=== PATIENT | female | born 1960 | race Caucasian/White ===

== ENCOUNTER 2018-08-26 08:01 | Day surgery (SDC) | payer BC ==
[~2018-08-26 08:01] MED LIST: Lactated Ringers 1,000 ML IV SCH; Lidocaine 2% 5 ML SDV ONE; Midazolam 1 MG/ML 2 ML SDV ONE; Propofol 200 MG/20 ML SDV ONE; Sodium Chloride 0.9% 10 ML SDV IV PRN; Sodium Chloride 0.9% 10 ML Syringe FLUSH PRN; Sodium Chloride 0.9% 2.5 ML Syringe FLUSH PRN; fentaNYL 100 MCG/2 ML SDV ONE
--- NOTE | 2018-08-26 09:02 | PCM.PREANE ---
Preanesthetic Assessment - Anesthesia/Transfusion/Family Hx Anesthesia History: Prior Anesthesia Without Reaction Other Type of Anesthesia Reaction Comment: states has hard time waking up from general anesthesia Family History of Anesthesia Reaction: No Transfusion History: No Prior Transfusion(s) - Review of Systems General: No Symptoms Pulmonary: No Symptoms Cardiovascular: No Symptoms Gastrointestinal: No Symptoms Neurological: No Symptoms Other: Reports: None - Physical Assessment NPO Status Date: 08/25/18 Height: 5 ft 2 in Weight: 67.585 kg ASA Class: 2 Mental Status: Alert & Oriented x3 Airway Class: Mallampati = 2 Dentition: Reports: Normal Dentition ROM/Head Extension: Full Lungs: Clear to Auscultation, Normal Respiratory Effort Cardiovascular: Regular Rate, Regular Rhythm - Allergies Allergies/Adverse Reactions: Allergies Allergy/AdvReac Type Severity Reaction Status Date / Time codeine Allergy Nausea and Verified 08/21/18 07:45 Vomiting Opioids - Morphine Analogues Allergy Nausea and Verified 08/21/18 07:45 Vomiting - Anesthesia Plan Pre-Op Medication Ordered: None - Acknowledgements Anesthesia Type Planned: General Anesthesia, MAC Pt an Appropriate Candidate for the Planned Anesthesia: Yes Alternatives and Risks of Anesthesia Discussed w Pt/Guardian: Yes Pt/Guardian Understands and Agrees with Anesthesia Plan: Yes PreAnesthesia Questionnaire HEENT History: Reports: Other (See Below) Other HEENT History: wears glasses Cardiovascular History: Reports: Hypertension Respiratory History: Reports: None Gastrointestinal History: Reports: Other (See Below) Other Gastrointestinal History: epigastric discomfort Genitourinary History: Reports: Renal Calculus 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: Musculoskeletal History: Reports: Fracture Other Musculoskeletal History: hx fx ribs Neurological History: Reports: Concussion Psychiatric History: Reports: None Endocrine/Metabolic History: Reports: None Hematologic History: Reports: None Immunologic History: Reports: None Oncologic (Cancer) History: Reports: None Dermatologic History: Reports: None - Past Surgical History Head Surgeries/Procedures: Reports: None Female Surgical History: Reports: Section, Lithotripsy/ESWL Endocrine Surgical History: Reports: None Neurological Surgical History: Reports: None Musculoskeletal Surgical History: Reports: None Oncologic Surgical History: Reports: None Dermatological Surgical History: Reports: None - SUBSTANCE USE Smoking Status *Q: Never Smoker Recreational Drug Use History: No - HOME MEDS Home Medications: Home Meds Omeprazole 20 mg PO DAILY 08/21/18 [History] hydroCHLOROthiazide [Hydrochlorothiazide] 25 mg PO DAILY 08/21/18 [History] - CURRENT (IN HOUSE) MEDS Current Meds: Current Medications Lactated Ringer's (Ringers, Lactated) 1,000 mls @ 125 mls/hr IV ASDIRECTED RODOLFO Sodium Chloride (Saline Flush) 10 ml FLUSH ASDIRECTED PRN PRN Reason: Keep Vein Open Sodium Chloride (Saline Flush) 2.5 ml FLUSH ASDIRECTED PRN PRN Reason: Keep Vein Open Sodium Chloride (Normal Saline) 10 ml IV ASDIRECTED PRN PRN Reason: IV Use Discontinued Medications Fentanyl (Sublimaze) Confirm Administered Dose 100 mcg .ROUTE .STK-MED ONE Stop: 08/26/18 07:03 Lidocaine (Xylocaine-Mpf 2%) Confirm Administered Dose 5 ml .ROUTE .STK-MED ONE Stop: 08/26/18 07:03 Midazolam HCl (Versed 1 Mg/Ml) Confirm Administered Dose 2 mg .ROUTE .STK-MED ONE Stop: 08/26/18 07:03 Propofol (Diprivan 20 Ml) Confirm Administered Dose 400 mg .ROUTE .STK-MED ONE Stop: 08/26/18 07:03
--- NOTE | 2018-08-26 09:46 | PCM.OPNOTE ---
- General Post-Op/Procedure Note Date of Surgery/Procedure: 08/26/18 Operative Procedure(s): Diagnostic EGD with biopsy Findings: Small hiatal hernia with mild narrowing of the distal esophagus and mild presbyesophagus Pre Op Diagnosis: Hiatal hernia Post-Op Diagnosis: same Anesthesia Technique: MAC Primary Surgeon: Ladi Ritchie Condition: Good
--- NOTE | 2018-08-26 09:56 | PCM.POSTAN ---
POST ANESTHESIA ASSESSMENT - MENTAL STATUS Mental Status: Alert, Oriented - RESPIRATORY Respiratory Status: Respiratory Rate WNL, Airway Patent, O2 Saturation Stable - CARDIOVASCULAR CV Status: Pulse Rate WNL, Blood Pressure Stable - GASTROINTESTINAL GI Status: No Symptoms - POST OP HYDRATION Hydration Status: Adequate & Stable
--- NOTE | 2018-08-26 09:56 | PCM48HPAN ---
Post Anesthesia Note - EVALUATION WITHIN 48HRS OF ANESTHETIC Vital Signs in Normal Range: Yes Patient Participated in Evaluation: Yes Respiratory Function Stable: Yes Airway Patent: Yes Cardiovascular Function Stable: Yes Hydration Status Stable: Yes Pain Control Satisfactory: Yes Nausea and Vomiting Control Satisfactory: Yes Mental Status Recovered: Yes Resp Rate: 18
[2018-08-26 10:14] VITALS: BP 157/91
--- NOTE | 2018-08-26 17:57 | OR ---
SURGEON: XAVIER WILLSON MD DATE OF PROCEDURE: 08/26/2018 PREOPERATIVE DIAGNOSIS: Hiatal hernia. POSTOPERATIVE DIAGNOSES: 1. Hiatal hernia. 2. Gastric polyp. 3. Mild presbyesophagus. PROCEDURE PERFORMED: Diagnostic esophagogastroduodenoscopy with biopsy. ANESTHESIA: MAC. INSTRUMENT USED: Olympus endoscope. EXTENT OF EXAM: Second portion of duodenum. PREPARATION: Good. LIMITATIONS: None. INDICATION FOR EXAMINATION: The patient is a 58-year-old female, who presented to my clinic with dysphagia. This is associated with some chest pain. A preoperative esophagram showed a tiny hiatal hernia with slight narrowing above the GE junction as well as some mild presbyesophagus. She has been on omeprazole since I saw her in clinic. We discussed the need for diagnostic EGD. I explained the procedure, expected perioperative course, and risks including bleeding, infection, or damage to surrounding structures including perforation. The patient verbalized understanding and wishes to proceed. PROCEDURE IN DETAIL: The patient was brought into the endoscopy suite and placed in a beach chair position. A time-out was completed verifying the patient's name, age, date of , allergies, and procedure to be performed. Monitored anesthesia care was induced and a bite block was placed in the patient's mouth. Continuous oxygen was provided via nasal cannula throughout the procedure. After adequate sedation was achieved, a well-lubricated endoscope was placed in the patient's mouth and advanced under direct visualization to the second portion of the duodenum. This appeared normal and a photograph was taken. The scope was then fully withdrawn while examining the color, texture, anatomy, and integrity of the mucosa of the upper GI tract. The duodenum was free of pathology. The scope was then brought into the stomach and a photograph was taken of the pylorus as well as the GE junction. The patient was noted to have a small hiatal hernia. The gastric mucosa appeared free of gross inflammation or ulceration. There was a small polyp in the body of the stomach along the lesser curvature. This was removed and sent to pathology as a gastric polyp. Biopsies were taken of the gastric antrum, body, and fundus and sent for histologic review and H. pylori testing. The scope was then brought into the distal esophagus. First, I passed through the hiatal hernia sac, which again appeared quite small. Photographs were taken of this. I then took a photo of the GE junction in the distal esophagus. There appeared to be slight narrowing there, but no evidence of any gross inflammation, ulceration, or scarring. A biopsy was taken 1 cm above the GE junction and sent to pathology, labeled as esophageal biopsy. The remainder of the esophageal mucosa appeared free of gross pathology; however, I did note some mild presbyesophagus. The scope was removed and the procedure terminated. The patient was transferred to the PACU in stable condition. ENDOSCOPIC DIAGNOSES: 1. Hiatal hernia. 2. Gastric polyp. 3. Mild presbyesophagus. RECOMMENDATIONS: Continue to take omeprazole and I will see the patient in clinic in 2 weeks to discuss any further workup. PAULINA ARORA /[id number]
[2018-08-27] MEDS ORDERED: Omeprazole 20 MG Cap.CR PO SCH (07:30)
== END 2018-08-26 10:45 | disposition home or self-care (01) ==
LOC: MW.SDS 08:01
PROVIDERS: ATTEND Surgery
DX: K44.9 Diaphragmatic hernia without obstruction or gangrene (principal); K20.9 Esophagitis, unspecified; K31.7 Polyp of stomach and duodenum; K21.9 Gastro-esophageal reflux disease without esophagitis; K22.8 Other specified diseases of esophagus; I10 Essential (primary) hypertension; E78.00 Pure hypercholesterolemia, unspecified; Z88.5 Allergy status to narcotic agent; Z79.899 Other long term (current) drug therapy
CPT/HCPCS: 43239; 88305; 88312; J2001; J2250; J2704; J3010; J7120

== ENCOUNTER 2018-10-13 07:52 | Day surgery (SDC) | payer BC ==
[~2018-10-13 07:52] MED LIST changes: +Bupivacaine 0.5% 10 ML SDV ONE; -Lidocaine 2% 5 ML SDV ONE; -Midazolam 1 MG/ML 2 ML SDV ONE; -Propofol 200 MG/20 ML SDV ONE; +ceFAZolin 2 GM in Premix Bag 1 BAG IV ONE; -fentaNYL 100 MCG/2 ML SDV ONE
--- NOTE | 2018-10-13 08:45 | PCM.PREANE ---
Preanesthetic Assessment - Anesthesia/Transfusion/Family Hx Anesthesia History: Prior Anesthesia Without Reaction Other Type of Anesthesia Reaction Comment: states has hard time waking up from general anesthesia Family History of Anesthesia Reaction: No Transfusion History: No Prior Transfusion(s) - Review of Systems General: No Symptoms Pulmonary: No Symptoms Cardiovascular: No Symptoms Gastrointestinal: No Symptoms Neurological: No Symptoms Other: Reports: None - Physical Assessment O2 Sat by Pulse Oximetry: 94 Respiratory Rate: 16 Vital Signs: Last Vital Signs Temp 99.0 F 10/13/18 08:26 Pulse 71 10/13/18 08:26 Resp 16 10/13/18 08:26 BP 145/91 H 10/13/18 08:26 Pulse Ox 94 L 10/13/18 08:26 Height: 5 ft 2 in Weight: 70.76 kg ASA Class: 2 ROM/Head Extension: Full Lungs: Clear to Auscultation, Normal Respiratory Effort Cardiovascular: Regular Rate, Regular Rhythm - Allergies Allergies/Adverse Reactions: Allergies Allergy/AdvReac Type Severity Reaction Status Date / Time codeine Allergy Nausea and Verified 10/09/18 09:33 Vomiting Opioids - Morphine Analogues Allergy Nausea and Verified 10/09/18 09:33 Vomiting - Blood Blood Available: No - Anesthesia Plan Pre-Op Medication Ordered: None - Acknowledgements Anesthesia Type Planned: General Anesthesia Pt an Appropriate Candidate for the Planned Anesthesia: Yes Alternatives and Risks of Anesthesia Discussed w Pt/Guardian: Yes Pt/Guardian Understands and Agrees with Anesthesia Plan: Yes Additional Comments: PMH: gerd, htn, biliary dyskenesia PLAN: GET, Go easy on intraoperative narcotic, use betablocker for sympathetic controll during dissection of gallbladder bed, titrate additional narcotic in PACU when awake. 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: Musculoskeletal History: Reports: Fracture Other Musculoskeletal History: hx fx ribs Neurological History: Reports: Concussion Psychiatric History: Reports: None Endocrine/Metabolic History: Reports: None Hematologic History: Reports: None Immunologic History: Reports: None Oncologic (Cancer) History: Reports: None Dermatologic History: Reports: None - Past Surgical History Head Surgeries/Procedures: Reports: None GI Surgical History: Reports: EGD Female Surgical History: Reports: Section, Lithotripsy/ESWL Endocrine Surgical History: Reports: None Neurological Surgical History: Reports: None Musculoskeletal Surgical History: Reports: None Oncologic Surgical History: Reports: None Dermatological Surgical History: Reports: None - SUBSTANCE USE Smoking Status *Q: Never Smoker Recreational Drug Use History: No - HOME MEDS Home Medications: Home Meds hydroCHLOROthiazide [Hydrochlorothiazide] 25 mg PO DAILY 08/21/18 [History] Pantoprazole Sodium 40 mg PO DAILY 10/09/18 [History] Scopolamine [Transderm-Scop] 1 patch TRDERM ASDIRECTED 10/09/18 [History] - CURRENT (IN HOUSE) MEDS Current Meds: Current Medications Lactated Ringer's (Ringers, Lactated) 1,000 mls @ 125 mls/hr IV ASDIRECTED RODOLFO Sodium Chloride (Saline Flush) 10 ml FLUSH ASDIRECTED PRN PRN Reason: Keep Vein Open Sodium Chloride (Saline Flush) 2.5 ml FLUSH ASDIRECTED PRN PRN Reason: Keep Vein Open Sodium Chloride (Normal Saline) 10 ml IV ASDIRECTED PRN PRN Reason: IV Use Discontinued Medications Bupivacaine HCl (Sensorcaine-Mpf 0.5%) Confirm Administered Dose 10 ml .ROUTE .STK-MED ONE Stop: 10/13/18 07:09 Cefazolin Sodium/Dextrose 2 gm (/ Premix) 50 mls @ 100 mls/hr IV ONETIME ONE Stop: 10/12/18 09:48
[2018-10-13] MEDS ORDERED: Bupivacaine 0.5% 10 ML SDV ONE (10:08)
[2018-10-13] MEDS ORDERED: fentaNYL 250 MCG/5 ML SDV ONE (10:13)
[2018-10-13] MEDS ORDERED: Propofol 200 MG/20 ML SDV ONE ×2 (10:13→10:51)
[2018-10-13] MEDS ORDERED: Rocuronium 100 MG/10 ML Syringe ONE (10:18)
[2018-10-13] MEDS ORDERED: Midazolam 1 MG/ML 2 ML SDV ONE (10:43)
[2018-10-13] MEDS ORDERED: ceFAZolin/Dextrose,Iso-Osmotic 2 GM/50 ML Duplex Bag IV ONE (10:57)
[2018-10-13] MEDS ORDERED: Ketorolac 30 MG/ML SDV ONE (11:22)
[2018-10-13] MEDS ORDERED: Ondansetron 4 MG/2 ML SDV ONE (11:22)
[2018-10-13] MEDS ORDERED: Metoprolol Tartrate 5 MG/5 ML SDV ONE (11:30)
[2018-10-13] MEDS ORDERED: Atropine 0.1 MG/ML 10 ML Syringe IVPUSH PRN ×2 (11:31)
[2018-10-13] MEDS ORDERED: Albuterol 0.083% 2.5 MG/3 ML Neb Soln NEB PRN (11:31)
[2018-10-13] MEDS ORDERED: EPINEPHrine 1:10,000 1 MG/10 ML Syringe IVPUSH PRN (11:31)
[2018-10-13] MEDS ORDERED: 50% Dextrose in Water 50 ML Syringe IVPUSH PRN (11:31)
[2018-10-13] MEDS ORDERED: Naloxone 0.4 MG/ML Syringe IVPUSH PRN (11:31)
[2018-10-13] MEDS ORDERED: Neostigmine Methylsulfate 1 MG/ML 5 ML Syringe ONE (11:43)
[2018-10-13] MEDS ORDERED: Glycopyrrolate 0.2 MG/ML SDV ONE (11:43)
--- NOTE | 2018-10-13 11:57 | PCM.OPNOTE ---
- General Post-Op/Procedure Note Date of Surgery/Procedure: 10/13/18 Operative Procedure(s): [place] Findings: Normal appearing Gallbladder Pre Op Diagnosis: Biliary Dyskinesia Post-Op Diagnosis: Normal Appearing Gallbladder, Biliary Dyskinesia Primary Surgeon: Ladi Ritchie Secondary Surgeon: Nehemiah Goodrich Fluid Replacement, Intraop: 1,200 Output, Urine Amount: 100 EBL in mLs: 10 Complications: None Condition: Good
[2018-10-13] MEDS ORDERED: Naloxone 0.4 MG/ML Syringe ONE (12:16)
[2018-10-13] MEDS: fentaNYL 100 MCG/2 ML SDV IVPUSH PRN ×2 (12:30→12:39)
--- NOTE | 2018-10-13 15:01 | PCM48HPAN ---
Post Anesthesia Note - EVALUATION WITHIN 48HRS OF ANESTHETIC Vital Signs in Normal Range: Yes Patient Participated in Evaluation: Yes Respiratory Function Stable: Yes Airway Patent: Yes Cardiovascular Function Stable: Yes Hydration Status Stable: Yes Pain Control Satisfactory: Yes Nausea and Vomiting Control Satisfactory: Yes Mental Status Recovered: Yes Resp Rate: 10
[2018-10-13 15:17] VITALS: BP 110/61
--- NOTE | 2018-10-13 20:19 | OR ---
SURGEON: LADI WILLSON MD DATE OF PROCEDURE: 10/13/2018 PREOPERATIVE DIAGNOSIS: Biliary dyskinesia. POSTOPERATIVE DIAGNOSIS: Biliary dyskinesia. PROCEDURE PERFORMED: Laparoscopic cholecystectomy. PRIMARY SURGEON: Ladi Willson MD. ANESTHESIA: General endotracheal anesthesia. 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 Nehemiah Goodrich, Transportation Broker. FLUIDS: 1200 mL of crystalloid. URINE OUTPUT: 100 mL. EBL: 10 mL. FINDINGS: Normal-appearing gallbladder. COMPLICATIONS: None. INDICATIONS: The patient is a 58-year-old female who presents with biliary dyskinesia. We discussed the need for a cholecystectomy. I explained both laparoscopic and open approaches. I will attempt it laparoscopically, but should I be unable to perform it safely, I will convert it to open. The patient and I discussed the expected perioperative course as well as the risks including bleeding, infection, or damage to surrounding structures. The patient verbalized understanding and wishes to proceed. PROCEDURE IN DETAIL: The patient was brought into the OR, placed on the OR table in supine position. A time-out was completed verifying the patient's name, age, date of , allergies, and procedure to be performed. General endotracheal anesthesia was induced. The left arm was tucked at the patient's side and a Carmona catheter placed. The abdomen was prepped and draped in usual standard fashion. I anesthetized the supraumbilical fold with 0.5% Marcaine plain. An 11 blade was used to make an incision along the supraumbilical fold. Cautery was used to dissect down to the subcutaneous fat layer. I bluntly dissected down to the fascia. The fascia was elevated with Katie's and incised sharply with a curved Bocanegra scissors. Entry into the abdomen was palpated. A 12 mm Keturah trocar was placed into the abdomen and it was insufflated. A 5 mm 30-degree scope was inserted and I inspected the area underneath my initial trocar placement. No damage to surrounding structures was noted. The patient was placed into reverse Trendelenburg position. 5 mm trocars were placed under direct visualization in the following locations: One in the epigastric area, one in the right flank, and one 2 fingerbreadths below the right subcostal margin in the midclavicular line. The dome of the gallbladder was grasped and elevated cranially. I identified the infundibulum. The surrounding tissue by the cystic duct and artery was taken down using a combination of hook cautery and gentle blunt dissection. I cleared off 1/3rd of the cystic plate. Once I achieved my critical view, a photograph was taken. I doubly clipped and ligated the cystic duct and artery. The remainder of the gallbladder was taken off the gallbladder fossa using electrocautery. The gallbladder was then placed in an EndoCatch bag and removed through the supraumbilical port site. The 12 mm Keturah trocar was placed back in the abdomen and I inspected my operative field. It was hemostatic with no evidence of biliary leakage. The clips appeared to be in good position. The 5 mm trocars were then removed under direct visualization and the abdomen allowed to desufflate. The fascia at the supraumbilical port site was closed with interrupted 0 Vicryl sutures. The subcutaneous fat layer was closed with interrupted 3-0 Vicryl sutures. The skin was closed with a running 4-0 Monocryl suture. The 5 mm trocar sites were closed with interrupted 4-0 Monocryl sutures. Steri-Strips and sterile dressings were applied. The patient tolerated the procedure well and was taken to PACU in stable condition. PAULINA ARORA /[id number]
== END 2018-10-13 14:50 | disposition home or self-care (01) ==
LOC: MW.SDS 07:52
PROVIDERS: ATTEND Surgery
DX: K81.1 Chronic cholecystitis (principal); I10 Essential (primary) hypertension; E78.00 Pure hypercholesterolemia, unspecified; K21.9 Gastro-esophageal reflux disease without esophagitis; K44.9 Diaphragmatic hernia without obstruction or gangrene; Z88.5 Allergy status to narcotic agent; Z79.899 Other long term (current) drug therapy
CPT/HCPCS: 47562; A9270; J0131; J0690; J1885; J2001; J2250; J2405; J2704; J3010; J3490; J7120; 00790; 88304